=== PATIENT | female | born 1965 | race Caucasian/White ===

== ENCOUNTER 2017-02-05 09:19 | Day surgery (SDC) | payer OTHER ==
[2017-02-05] VITALS (13 sets, daily range): BP systolic 88–132; BP diastolic 46–72; PULSE 56–91; RESP 11–18; O2SAT 96–100
[~2017-02-05] VITALS: Ht 165.1 cm; Wt 57.0 kg
[2017-02-05] MEDS: Lactated Ringer's 1,000 ML IV SCH ×3 (05:00→12:49)
[~2017-02-05 09:19] MED LIST: CHOL10008 PO; MULT-1018 PO
[2017-02-05] MEDS ORDERED: Ondansetron 2 mg/mL 2 mL Inj ONE (09:20)
[2017-02-05] MEDS ORDERED: Propofol 10,000 mCg/mL 20 mL Inj ONE (09:20)
[2017-02-05] MEDS ORDERED: Phenylephrine/NS 100 mCg/mL 10 mL Syringe IVPUSH ONE (09:20)
[2017-02-05] MEDS ORDERED: Dexamethasone 4 mg/mL Inj ONE (09:20)
[2017-02-05] MEDS ORDERED: EPHEDrine/NS 5 mg/mL 5 mL Syringe ONE (09:20)
[2017-02-05] MEDS ORDERED: MetoCLOpramide 5 mg/mL 2 mL Inj ONE (09:20)
[2017-02-05] MEDS ORDERED: Lidocaine PF 1% 30 mL Inj ONE (09:20)
[2017-02-05] MEDS ORDERED: fentaNYL-PF 50 mCg/mL 2 mL Inj ONE (09:20)
[2017-02-05] MEDS ORDERED: IBUP400T22 PO (09:34)
--- NOTE | 2017-02-05 12:40 | PCM.HPANE ---
Patient Data Date of Service: Feb 05, 2017 Surgeon Admitting Provider: Attending Provider:Judy Mehta MD Primary Care Physician:Villa Ohara MD Other Provider:Ryan Cox Anesthesia Reason for Visit Post-Menopausal Bleeding Ht/WT & BMI Height (Feet): 5 Height (Inches): 5.00 Weight (Kilograms): 57.0 Body Mass Index 20.00 Allergies Coded Allergies: No Known Allergies (Verified Allergy, Unknown, 11/01/15) Past Anesthesia History Anesthesia History: Denies:: Abnormal Airway, Anesthesia Reactions, Difficult Intubation, Fam Anesthesia Reaction, Fam Malignant Hypertherm, Malignant Hyperthermia Diabetes History Hx Diabetes?: No MRSA MRSA: No Medications Hypertension Medication: No Home Meds Incl Beta Taty: No Reported Medications Ibuprofen 400 Mg [id number] Mg PO QID PRN For Pain Ref 0 02/05/17 Cholecalciferol (Vitamin D3) (Vitamin D3)1,000 Unit Tab.chew1,000 Unit PO DAILY 02/04/17 Multivitamin (Multi Vitamin Daily)1 Each Tablet1 Each PO DAILY 30 Days Ref 0 02/04/17 Discontinued Reported Medications Cholecalciferol (Vitamin D3) (Vitamin D3)1,000 Unit Tab.chew1,000 Unit PO DAILY 11/01/15 Multivitamin (Once Daily)1 Each Tablet1 Each PO DAILY 11/01/15 Trastuzumab (Herceptin)440 Mg [id number] Mg IV 11/01/15 Cyclobenzaprine 10 Mg [id number] Mg PO HS PRN Spasm Ref 0 11/01/15 History History of ENT Problems?: No HEENT History: Denies:: Abnormal Airway Difficult Intubation Hearing Problem Hx of Heart Problems?: No Cardiovascular History: Denies:: AICD Heart Murmur Hypertension Irregular Heartbeat Pacemaker Peripheral Vascular Valvular Heart Disease (echo 2016- ef= 60%) Hx of Respiratory Problem?: No Respiratory History: Denies:: Asthma COPD Emphysema Oxygen Administration Pneumonia Tuberculosis Use of C-PAP Machine Use of Inhalers / NEBS Hx Neurologic Problems?: No Neurological History: Denies:: CVA Dementia Headaches Multiple Sclerosis Parkinson's Disease Seizures Hx of GI Problems?: No Gastrointestinal History: Denies:: Gastroesphageal Reflux Heartburn Liver Disease Hx of Problems?: No Genitourinary History: Denies:: Kidney Stones Urinary Tract Infection Female Hx: Positive for:: Problems with Breasts? (left breast ca- adriana mastectomy/reconstruction) Denies:: Currently Skin History: Denies:: History Skin Disorders? Hx Musculoskeletal Problems?: No Musculoskeletal History: Denies:: Back Injury Fibromyalgia Joint Replacement Musculoskeletal Trauma Myasthenia Gravis Osteoarthritis Psycho Social History: Denies:: Anxiety Hx Depression Hx Surgeries?: Yes (adriana mastectomy c reconstruction, port, c section) Hx Any Other Health Problems?: Yes Other History: Positive for:: Cancer (left breast) Denies:: Thyroid Disease Hx Diabetes: No Hx Alcohol Use: YesHx Substance Use: No Smoking Status: Never Smoker Have You Smoked inLast 12 mo: No Stop/Bang Treated for Sleep Apnea?: No Do You Have a CPAP Machine?: No S-Snoring: Do You Snore Loudly: No T-Tired: feel tired, fatigued: No O-Obsered: Observed not breath: No P-Blood Pressure: treated: No B- Body Mass Index > 35 kg/m2: No A- Age over 50: Yes N- Neck Large Circumference: No G- Gender Male: No GERA Total Score: 1 GERA Risk Assessment: Low Risk, <3 Yes Risk Assessment Category Category 1A: Patient has history of documented sleep apnea, and HAS NOT received any narcotic, sedative or anesthesia administration during this stay. Category 1B: Patient has history of documented sleep apnea, and HAS received any narcotic , sedative or anesthesia administration during this stay Category 2: Patient has SUSPECTED Obstructive Sleep Apnea, and HAS received any narcotic , sedative or anesthesia administration during this stay. Category 3: Patient has SUSPECTED Obstructive Sleep Apnea and HAS NOT received narcotic, sedative or anesthesia administration during this stay. Category 4: Outpatient in Procedural Areas with known sleep apnea or who screen positive for High Risk via the STOP/BANG questionnaire. Exam Exam Vital Signs Vital Signs Date Time Temp Pulse Resp B/P Pulse Ox O2 Delivery O2 Flow Rate FiO2 02/05/17 09:57 36.2 64 18 107/61 100 Room Air General Appearance: Alert, Oriented X3, Cooperative HEENT/AIRWAY: MP 1, Neck Movement (Full), Mouth Opening (Wide) Lungs: Clear to Auscultation, Normal Air Movement Heart: Regular Rate/Rhythm, Normal S1, Normal S2 Meds/Labs/Diagnostics Admission Meds Current Medications Lactated Ringer's (Lr) 1,000 ml @ 120 mls/hr Q8H20M IV Last administered on t 09:23; Start 02/05/17 at 05:00; Stop 02/05/17 at 13:19 Plan Impression Patient chart reviewed, patient interviewed and anesthestic plan with risks, benefits, and alternatives discussed, and informed consent obtained. NPO Status: water at 0630 ASA Physical Status: ASA2 Mod Systemic Disease (hx breast cancer) Anesthetic Plan: GA Bene/Risks/Altern/Consents: Yes HP Complete Prior to Induction: Yes Akira Hutchins MD Feb 05, 2017 10:51
[2017-02-05] MEDS ORDERED: Lactated Ringer's 500 ML IV PRN (12:41)
[2017-02-05] MEDS ORDERED: Lactated Ringer's 1,000 ML IV SCH (12:41)
[2017-02-05] MEDS ORDERED: Dexamethasone 4 mg/mL Inj IVPUSH PRN (12:45)
[2017-02-05] MEDS ORDERED: Labetalol 5 mg/mL 4 mL Inj IV PRN (12:45)
[2017-02-05] MEDS ORDERED: Phenylephrine 10,000 mCg/mL Inj IVPUSH PRN (12:45)
[2017-02-05] MEDS ORDERED: MetoCLOpramide 5 mg/mL 2 mL Inj IVPUSH PRN (12:45)
[2017-02-05] MEDS ORDERED: Ondansetron 2 mg/mL 2 mL Inj IVPUSH PRN (12:45)
[2017-02-05] MEDS ORDERED: fentaNYL-PF 50 mCg/mL 2 mL Inj IVPUSH PRN (12:45)
[2017-02-05] MEDS ORDERED: HYDROmorphone 1 mg/mL Inj IVPUSH PRN (12:45)
[2017-02-05] MEDS ORDERED: EPHEDrine Sulfate 50 mg/mL Inj IVPUSH PRN (12:45)
[2017-02-05] MEDS ORDERED: Atropine 0.4 mg/mL Inj IVPUSH PRN (12:45)
[2017-02-05] MEDS ORDERED: oxyCODONE-Acetamin 5-325 mg Tablet PO PRN (13:50)
--- NOTE | 2017-02-05 14:02 | PCM.ANEP1 ---
Post Anesthesia Phase 1 PACU Phase 1 Assessment Date of Service: Feb 05, 2017 Vital Signs Vital Signs Date Time Temp Pulse Resp B/P Pulse Ox O2 Delivery O2 Flow Rate FiO2 02/05/17 13:55 91 18 132/62 98 Room Air 02/05/17 13:50 36.6 88 12 111/64 100 Simple Mask 8 02/05/17 09:57 36.2 64 18 107/61 100 Room Air Anesthetic Administered: GA Level of Alertness: Sleepy, easy to arouse RAMOS's with Equal Strength: Yes Pain: No Nausea or Vomiting: No Airway Device: Nasal Airway Oxygen Delivery: Simple Mask Lungs: Normal Air Movement Akira Hutchins MD Feb 05, 2017 14:02
--- NOTE | 2017-02-05 14:26 | PCM.ANEP2 ---
Post Anesthesia Evaluation ASA/CMS Post Anesthesia Date of Service: Feb 05, 2017 VS in Patient's Normal Range?: Yes Resp Stable; Airway Patent?: Yes CV Function & Hydration Stable: Yes Mental Status Recovered?: Yes Pain control Satisfactory?: Yes N/V Control Satisfactory?: Yes Akira Hutchins MD Feb 05, 2017 14:26
--- NOTE | 2017-02-05 14:52 | OP ---
[address] [address] OPERATIVE REPORT PATIENT: LINDEN AGUILAR : 1965 MR#: [id number] ADMIT: 02/05/2017 JOB ID: [id number] DATE OF SURGERY: 02/05/2017 PREOPERATIVE DIAGNOSIS(ES): 1. Postmenopausal bleeding. 2. Thick endometrium. 3. Failed office procedure of endometrial biopsy. POSTOPERATIVE DIAGNOSIS(ES): 1. Postmenopausal bleeding. 2. Thick endometrium. 3. Failed office procedure of endometrial biopsy. SURGEON: Judy Mehta MD INDICATIONS: This is a 51-year-old female. She was admitted for hysteroscopy, D and C for postmenopausal vaginal bleeding, history of breast cancer, and thickened endometrium. Informed consent signed. Patient understood there is risk of infection, bleeding, perforation of the uterus, injury to the organs around the uterus, including but not limited to the bladder, ureters, major vessels, nerves, and bowels. Informed consent signed. PROCEDURE IN DETAIL: The patient was transferred to operating room. After general anesthesia was noted to be adequate, she was placed in dorsal lithotomy position. She was prepared and draped in normal sterile fashion. Weighted speculum inserted to vagina to expose the cervix. Right angle retractor was also used to expose the cervix of the uterus. The cervix was grasped by single-tooth tenaculum. The dilation of the cervix was challenging. The dilation started at 4-Martiniquais. It was difficulty to pass through the internal os. Different directions tried, and still difficult to go through the internal cervical os. The speculum was removed and the uterus was re-examined. It was a normal sized uterus, retroverted. This is a similar examination compared to the office examination and the examination before the procedure. At this time, the speculum was re-inserted to vagina to expose the cervix. The cervix was grasped by tenaculum one more time. At this time, still with gentle strength, the 4-Martiniquais was able to go forward about 2-3 cm, and then it was gradually dilated to 7-Martiniquais. At this time, the hysteroscopy scope was placed in about 5-6 cm. Could not see a clear uterine cavity. At this time, the scope was tried to retract back. Then, it was noticed there was 400 mL of fluid deficit. During retraction of this scope, it was noted possibly opening to the uterine cavity on the right side of the patient. The scope was completely removed. Gentle effort was used to dilate the direction of patient's right side. I could gently place to dilated 7-Martiniquais and tried to gently place the hysteroscopy scope to the right cut which I believe it is, but it was difficult to place the scope in. With a short period of time, there was another 300 cc of fluid deficit that was noticed. Then, the procedure of hysteroscopy was abandoned. I tried to use the sharp curettage gently placed inside the cavity which only goes into 6-7 cm with clear wall, and gentle curettage was performed. Only scanty tissue could be removed. Then, at this time, the tenaculum removed from the cervix. The cervix was observed. There was no active bleeding through the cervical os. Patient's vitals were all stable at this time. Decision was made to have a cystoscopy performed to make there is no bladder injury. A 70 degree cystoscopy scope inserted. The whole range of the urethra and bladder was examined, and no defect was noticed. Cystoscopy was removed. The patient tolerated the procedure well. All instrument, needles, laps, and gauzes counted correct twice. The procedure was cystoscopy, D and C, failed with complication of uterine perforation. Postoperatively, the patient will be admitted to the hospital for observation.
--- NOTE | 2017-02-05 16:24 | NUR ---
receipt from pacu patient arrived from pacu at 1510 to room 246-1. patient oriented to room and call light and states understanding. scd's in place. iv saline locked as per MD order. winston pad with scant amount of serosanginous drainage. patient denies pain, nausea or shortness of breath. scopalamine patch removed from patient as per MD order. patient tolerating sips of clear liquids with no problems. Dr. Lozano here to see patient. report given to primary RN Carey Kuo at 1600.
--- NOTE | 2017-02-05 17:41 | NUR ---
Shift summary Pt up to bathroom as a SBA, tolerated activity well. She denies pain. A small amount of bloody discharge was present on her winston pad, no changes in discharge since arrival to unit. Tolerating clear liquids without nausea. Given doxycycline x1.
[2017-02-06] MEDS ORDERED: Sodium Chloride LOK Flush 10 mL Syringe IVFLUSH SCH (00:30)
[2017-02-06 02:41] VITALS: BP 84/53; PULSE 60; RESP 16; O2SAT 96
--- NOTE | 2017-02-06 03:49 | NUR ---
Hypotension Pt BP at 2200 was 88/46 in a sitting position, and 89/47 in a laying position with HR 60. Pt denies dizziness and lightheadedness. iliana Lunad attending MD, and state she doesn't worry about it. encouraged pt to drink more fluid. BP at 0230 is 84/53 with HR 60 in laying position. pt asymptomatic. Will continue to monitor. Addendum: 02/06/17 at 0611 by CRISTOBAL TAO RN BP this morning is 97/57 with HR 87. pt asymptomatic. pt continues to have NO bloody drainage during this shift per winston-pad. urine clear pale yellow.Abdomen soft and non tender. Denies pain and nausea. Advanced her diet to general. will continue to monitor.
[2017-02-06 05:56] VITALS: BP 97/57; PULSE 87; RESP 16; O2SAT 99
[2017-02-06 07:50] VITALS: BP 103/60
--- NOTE | 2017-02-06 08:36 | PCM.DIGYN ---
VERO SHIELDS DO 02/06/17 0836: Surgical Discharge Instruction Dates of Hospitalization Date of Hospital Admission 02/05/17 Providers Admitting Physician: Primary Care Physician: Villa Ohara MD Attending Physician: Judy Mehta MD Diagnosis at Time of Discharge Diagnosis at time of discharge 1. Postop day 1 after hysteroscopy and D&C 2. Postmenopausal bleeding. 3. Thick endometrium. 4. Failed office procedure of endometrial biopsy. Problems: Diet Discharge Diet: No restrictions Activity Discharge Activity-General: Be up and about, Activity as pain allows, Activity as energy allows Dressing and Incisional Care Hygiene: May shower Additional Instructions Discharge Instructions You may use ibuprofen 400-600 mg every 8 hours as needed for pain. You also may find it beneficial to use stool softeners to minimize constipation and pain that may be exasperated by straining. Follow up as scheduled to review biopsy results at [facility]. Call to schedule/confirm appointment. Follow Up Plan Follow Up Plan Follow up as scheduled on 02/18 to review biopsy results at [facility] with Dr. Zimmerman. Follow-up Provider (F9): Celeste Zimmerman MD Follow-up appointment: As previously arranged (02/18/17) Date for Followup Visit: Feb 18, 2017 Call your provider for: Fever, Chills, Shortness of breath, Vomitting Judy Mehta MD 03/10/17 1059: Surgical Discharge Instruction Attending Statement patient is doing well. No abdominal pain. No significant vaginal bleeding. Examination: abdomen soft, nontender. Plan to discharge home. She will follow up in office 2 weeks after procedure VEOR SHIELDS DO Feb 06, 2017 08:36 Judy Mehta MD Mar 10, 2017 10:59
--- NOTE | 2017-02-06 09:39 | NUR ---
Discharge Pt seen by MDs at bedside this am. No complaints or concerns, denies pain. Pt given verbal instructions and symptoms to monitor by MD and RN for d/c. Pt verbalized instructions and need for follow up. All belongings with pt at ma. Iv was dc'd w/o complication. Pt dc'd ambulatory with and UA at 0930. Addendum: 02/06/17 at 1109 by KELLE MEDRANO RN motrin 600mg [facility]
--- NOTE | 2017-02-06 11:00 | PCM.DC.SUR ---
Discharge Summary Date of Service: Feb 06, 2017 Date of Hospital Admission: 02/05/17 Date of Operation(s): 02/05/17 Date of Discharge: Feb 06, 2017 at 09:25 Diagnosis at Time of Discharge 1. Postop day 1 after hysteroscopy and D&C 2. Postmenopausal bleeding. 3. Thick endometrium. 4. Failed office procedure of endometrial biopsy. Problems: Operation Hysteroscopy and D&C Brief History and Physical: Per Dr. Mehta's H&P: This is a 51-year-old female. She was admitted for hysteroscopy, D and C for postmenopausal vaginal bleeding, history of breast cancer, and thickened endometrium. Informed consent signed. Patient understood there is risk of infection, bleeding, perforation of the uterus, injury to the organs around the uterus, including but not limited to the bladder, ureters, major vessels, nerves , and bowels. Hospital Course: Patient admitted postoperatively for observation overnight after hysteroscopy and D&C. Patient was stable throughout the night with no acute overnight events. She was able to ambulate and urinate without difficulties. She is tolerating oral intake without nausea or vomiting. Using ibuprofen alone for pain control as needed. Follow-up Plan: Follow-up was scheduled on 02/18/17 to [facility] Zimmerman. Cholecalciferol (Vitamin D3) (Vitamin D3) 1,000 Unit Tab.chew 1,000 UNIT PO DAILY (Reported) Ibuprofen (Ibuprofen) 400 Mg Tablet 400 MG PO QID PRN PRN For Pain (Reported) Multivitamin (Multi Vitamin Daily) 1 Each Tablet 1 EACH PO DAILY (Reported) Discharge Medications: Ibuprofen 400-600 mg every 8 hours as needed for pain. Attending Statement: I saw patient and examined her. I agree with above plan. VERO SHIELDS DO Feb 06, 2017 11:00 Judy Mehta MD Mar 10, 2017 11:09
--- NOTE | 2017-02-06 15:36 | NUR ---
Social Work Note - Screening/Discharge: D/A: The Pt is a 51 y/o female that is listed as [facility] for post-[place] bleeding. The Pts PCP is MD Villa Ohara and her insurance is [employer]. EMR reviewed. SW met with the Pt to explain role and discuss discharge planning, telephone number written on white board. The Pt lives independently with her in [place]. The Pt reports that she does have an Advanced Care Directive, paperwork requested. The Pt denies any needs at this time, SW to follow if needs arise. P: The Pt to discharge home today with family providing POV transportation. The Pt denies any needs at this time, SW to follow if needs arise. Lorenza Gagnon MSW [employer] ALEX Smith
--- NOTE | 2017-02-07 14:04 | PATH ---
SURGICAL PATHOLOGY Attending Physician:Juyd Mehta MD CASE STATUS: Signed Out PATIENT NAME: LINDEN AGUILAR PID: [id number] : 1965 DATE COLLECTED:02/05/2017 23:41 SPECIMEN: Endometrium, Curettage CLINICAL HISTORY: POSTMENOPAUSAL BLEEDING 1). ENDOMETRIAL CURETTINGS FINAL DIAGNOSIS: Endometrial Curettings: Blood and scant fragments of atrophic endometrium. No evidence of malignancy or hyperplasia. ICD10: N95.0 GROSS DESCRIPTION: The specimen is received in one formalin filled container labeled with the patient's name, sublabeled "endometrial curettings" and consists of a less than 0.25 cc aggregate of tissue, mucoid material and blood which is wrapped and entirely submitted in one cassette. 02/06/2017 [facility] ICD-9 CODES: CPT CODES: 1: 83535 Electronically Signed Out Adrian Choi MD [facility] [address], [place] [address] Technical component performed at [employer] [facility], [facility] [address], [place], [address]
== END 2017-02-06 09:25 | disposition home or self-care (01) ==
LOC: SAS 09:19 → MOC 15:43 → SAS 02-06 09:25
PROVIDERS: ATTEND Obstetrics & Gynecology
DX: N95.0 Postmenopausal bleeding (principal); N99.71 Accidental puncture and laceration of a genitourinary system organ or structure during a genitourinary system procedure; R93.8 Abnormal findings on diagnostic imaging of other specified body structures; Z85.3 Personal history of malignant neoplasm of breast; Z53.09 Procedure and treatment not carried out because of other contraindication; Z92.3 Personal history of irradiation; Z92.21 Personal history of antineoplastic chemotherapy; Z17.1 Estrogen receptor negative status [ER-]
CPT/HCPCS: 58558; J1100; J1885; J2250; J2370; J2405; J2765; J3010; J7120